=== PATIENT | female | born 1960 | race Caucasian/White ===

== ENCOUNTER 2017-08-20 05:57 | Emergency (ER) | payer BC, OTHER ==
[2017-08-20] MEDS ORDERED: Lorazepam 2 MG/ML VIAL ONE (06:23)
[2017-08-20] MEDS ORDERED: Ketorolac Tromethamine 30 MG/ML VIAL ONE (06:24)
== END 2017-08-20 07:39 | disposition home or self-care (01) ==
LOC: SCSER 05:57
DX: M54.5 Low back pain (principal); E03.9 Hypothyroidism, unspecified; X50.9XXA Other and unspecified overexertion or strenuous movements or postures, initial encounter
CPT/HCPCS: 96374; 96375; 96376; J1885; J2060; J2270

== ENCOUNTER 2017-08-25 15:58 | Outpatient (CLI) | payer BC ==
--- NOTE | 2017-08-25 19:09 | RAD ---
EXAM: THORACIC SPINE THREE VIEWS: 08/25/17 HISTORY: Pain. Patient was lying on the floor a few days ago and began having severe upper back pain. FINDINGS: Thoracic spine vertebral body height is maintained. No fracture. Mild loss of disc space height. No malalignment. IMPRESSION: Unremarkable three views thoracic spine. POS: [facility]
--- NOTE | 2017-08-25 19:20 | RAD ---
EXAM: THREE VIEWS LUMBAR SPINE 08/25/17 HISTORY: Back pain. Patient was lying on the floor a few days ago and began having severe upper and lower kareen k pain. FINDINGS: Three views lumbar spine: Five lumbar type vertebral bodies. Vertebral body height is maintained. No fracture. No spondylolist hesis or spondylolysis. Disc space heights are preserved. IMPRESSION: Unremarkable lumbar spine three views. POS: [facility]
== END 2017-08-25 15:59 | disposition home or self-care (01) ==
LOC: SCSRAD 15:58
PROVIDERS: ATTEND Family Medicine
DX: M54.9 Dorsalgia, unspecified (principal)
CPT/HCPCS: 72072; 72100

== ENCOUNTER 2017-12-16 10:19 | Outpatient (CLI) | payer BC | END 2017-12-16 10:20 | disposition home or self-care (01) | LOC: BICRAD 10:19 | PROVIDERS: ATTEND Internal Medicine Medical Oncology | DX: M89.8X9 Other specified disorders of bone, unspecified site (principal) | CPT/HCPCS: 77075 ==

== ENCOUNTER 2018-01-07 07:36 | Outpatient (CLI) | payer BC | END 2018-01-07 07:37 | disposition home or self-care (01) | LOC: BICBD 07:36 | PROVIDERS: ATTEND Internal Medicine Medical Oncology | DX: Z12.31 Encounter for screening mammogram for malignant neoplasm of breast (principal); Z13.820 Encounter for screening for osteoporosis; D68.69 Other thrombophilia; D47.2 Monoclonal gammopathy; S22.089A Unspecified fracture of T11-T12 vertebra, initial encounter for closed fracture; N63.20 Unspecified lump in the left breast, unspecified quadrant | CPT/HCPCS: 77080 ==

== ENCOUNTER 2018-01-28 13:52 | Outpatient (CLI) | payer BC | END 2018-01-28 13:53 | disposition home or self-care (01) | LOC: BICMAMMO 13:52 | PROVIDERS: ATTEND Internal Medicine Medical Oncology | DX: Z12.31 Encounter for screening mammogram for malignant neoplasm of breast (principal) | CPT/HCPCS: G0279 ==

== ENCOUNTER 2018-03-08 16:03 | Outpatient (CLI) | payer BC ==
--- NOTE | 2018-03-08 17:03 | ULT ---
VENOUS DOPPLER ULTRASOUND OF THE LEFT LOWER EXTREMITY 03/08/18 HISTORY: Left lower extremity pain and edema. TECHNIQUE: Altamirano scale ultrasound with color flow and spectral doppler imaging of the deep venous system of the l eft lower extremity is performed. FINDINGS: There is good flow, compression and augmentation noted in the left common femoral, femoral, deep femo ral, popliteal, posterior tibia and greater saphenous veins in the left lower extremity. IMPRESSION: No evidence of DVT in the left lower extremity. POS: [facility]
== END 2018-03-08 16:04 | disposition home or self-care (01) ==
LOC: ULT 16:03
PROVIDERS: ATTEND Internal Medicine Medical Oncology
DX: M79.605 Pain in left leg (principal); C90.00 Multiple myeloma not having achieved remission; D68.69 Other thrombophilia

== ENCOUNTER 2019-03-01 14:43 | Observation (INO) | payer BC ==
[2019-03-01] MEDS ORDERED: predniSONE 20 MG TAB ONE (15:13)
[2019-03-01 15:31] LABS: Hemoglobin 14.1 g/dL (12.0-16.0); Mean Corpuscular HGB CONC 32.8 g/dL (32.0-36.0); Mean Corpuscular Hemoglobin 30.4 pg (27.0-31.0); Mean Corpuscular Volume 92.8 fL (78.0-98.0); Mean Platelet Volume 6.6 fL (7.4-10.4); Platelet Count 450 thou/uL (130-400); RBC Distribution Width 12.9 % (11.5-14.5); Red Blood Cell (RBC) Count 4.63 mill/uL (4.20-5.40); White Blood Cell (WBC) Count 21.6 thou/uL (4.8-10.8)
[2019-03-01 15:50] LABS: ALT (SGPT) 27 U/L (8-55); AST (SGOT) 29 U/L (5-34); Alkaline Phosphatase 87 U/L (40-150); Anion Gap 15 mmol/L (10-20); BUN (Urea Nitrogen) 14 mg/dL (9.8-20.1); Bilirubin, Total 0.5 mg/dL (0.2-1.2); CK (CPK) 39 U/L (29-168); Calc. Creatinine Clearance 0 mL/min (70-130); Calcium 9.8 mg/dL (7.8-10.44); Carbon Dioxide 19 mmol/L (22-29); Chloride 109 mmol/L (98-107); Estimated GFR-MDRD 73; Globulin 3.4 g/dL (2.4-3.5); Glucose 160 mg/dL (70-105); Lipase 40 U/L (8-78); Potassium 4.2 mmol/L (3.5-5.1); Protein, Total 7.4 g/dL (6.0-8.3); Sodium 139 mmol/L (136-145)
[2019-03-01 15:54] LABS: Band 27 % (5-11); Lymphocytes 2 % (21-51); MDiff Complete? YES; Metamyelocyte 3 % (0-0); Monocytes 1 % (0-10); Neutrophil 67 % (42-75); Platelet Morphology Comment Appears Increased; RBC Morphology Normal
--- NOTE | 2019-03-01 15:56 | RAD ---
SINGLE VIEW CHEST: HISTORY: Dyspnea. COMPARISON: FINDINGS: A single view of the chest shows an enlarged but stable cardiomediastinal silhouette. There is no ev idence of consolidation, mass, or pleural effusion. Degenerative changes are seen In the spine. IMPRESSION: No evidence of acute cardiopulmonary disease. POS: [facility]
--- NOTE | 2019-03-01 16:39 | PDOC.FPRHP ---
Addendum entered and electronically signed by Esteban Card MD 03/01/19 17: 33: Leukocytosis likely 2/2 steroids given prior to presentation. Pt afebrile. Will repeat in the AM. Original Note: - History of Present Illness Chief Complaint: Reaction to New Chemo medication History of Present Illness: 59 yo female with diagnosis of multiple myloma (December 2016) presents for medication reaction. Earlier today started new chemo medication infusion at around 0930. Initially tolerated at lowest rate. Dose was doubled. Began noticing symptoms of chest tightness and fullness but felt she was tolerated well. After 1 hour rate was decreased to lowest rate again. Symptoms resolved. Therefore, rate was increased to triple initial rate. After 10 minutes patient became hypoxic and hypovolemic. Chest tightness, facial swelling, and hives. Infusion emergently stopped. Received 20 mg of dexemethasone, 0.5 mg of ativan, benadryl, and pepcid at the oncologist. Pt notes resolution of chest tightness and difficulty breathing as soon as infusion was stopped. Given 60 mg of prednisone and 1L NS here in the ER w/ subsequent resolution of face swelling and hives. Pt reports back to baseline. Dr. Chinchilla contacted from ER and requesting admission to attempt infusion again tomorrow at slower rate. ED Course: Received oral prednisone. 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 Father: Lung cancer. Thyroid disease -- hypo and hyper. Social: Denies tobacco, alcohol, and drug use. . 1 child. 4 children. 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 Code status: Full - Review of Systems General: denies: fever/chills Eyes: denies: vision changes ENT: denies: rhinorrhea Respiratory: reports: shortness of breath Cardiovascular: reports: chest pain (tightness) Gastrointestinal: denies: nausea, vomiting Skin: reports: rashes (hives) Musculoskeletal: reports: swelling (face) Neurological: denies: syncope, seizure Psychological: denies: anxiety - Vital signs BP: 137/62 HR: 106 RR: 18 Tmax: 98.2 Pox: 97% on 2L Wt: 126 kg - Physical Exam Constitutional: NAD, awake, alert and oriented, well developed HEENT: normocephalic and atraumatic, PERRLA, EOMI, conjunctiva clear Heart: RRR, other (2/5 TENA RLSB) Lungs: CTAB, no respiratory distress, good air movement, no rales/rhonchi, no wheezing Abdomen: soft, non-tender, bowel sounds present Musculoskeletal: normal structure, normal tone Neurological: no focal deficit, CN II-XII intact Skin: no rash/lesions Psychiatric: normal mood and affect, good judgment and insight FMR H&P: Results - Labs Result Diagrams: 03/02/19 03:50 03/02/19 03:50 Lab results: WBC 21.6 thou/uL (4.8-10.8) H 03/01/19 15:19 Hgb 14.1 g/dL (12.0-16.0) 03/01/19 15:19 Hct 43.0 % (36.0-47.0) 03/01/19 15:19 MCV 92.8 fL (78.0-98.0) 03/01/19 15:19 Plt Count 450 thou/uL (130-400) H 03/01/19 15:19 Band Neuts % (Manual) 27 % (5-11) H 03/01/19 15:19 Sodium 139 mmol/L (136-145) 03/01/19 15:19 Potassium 4.2 mmol/L (3.5-5.1) 03/01/19 15:19 Chloride 109 mmol/L (98-107) H 03/01/19 15:19 Carbon Dioxide 19 mmol/L (22-29) L 03/01/19 15:19 BUN 14 mg/dL (9.8-20.1) 03/01/19 15:19 Creatinine 0.81 mg/dL (0.6-1.1) 03/01/19 15:19 Glucose 160 mg/dL (70-105) H 03/01/19 15:19 Calcium 9.8 mg/dL (7.8-10.44) 03/01/19 15:19 Total Bilirubin 0.5 mg/dL (0.2-1.2) 03/01/19 15:19 AST 29 U/L (5-34) 03/01/19 15:19 ALT 27 U/L (8-55) 03/01/19 15:19 Alkaline Phosphatase 87 U/L (40-150) 03/01/19 15:19 Creatine Kinase 39 U/L (29-168) 03/01/19 15:19 B-Natriuretic Peptide 23.1 pg/mL (0-100) 03/01/19 15:19 Serum Total Protein 7.4 g/dL (6.0-8.3) 03/01/19 15:19 Albumin 4.0 g/dL (3.5-5.0) 03/01/19 15:19 Lipase 40 U/L (8-78) 03/01/19 15:19 - EKG Interpretation EKG: Sinus tachycardia at 106 bpm - Radiology Interpretation Chest x-ray Status: report reviewed by me Additional comment: NAD FMR H&P: A/P - Problem List (1) Medication reaction Current Visit: Yes Status: Acute Code(s): T50.905A - ADVERSE EFFECT OF UNSP DRUG/MEDS/BIOL SUBST, INIT Assessment and Plan: S/p steroids x 2 and antihistamines Did not require epinephrine Pt reports back to baseline, VSS Will admit to Onc/Obs per oncology reccomendations and monitor overnight w/ plans to re-attempt infusion of new chemo medication tomorrow at a slower rate as she was able to tolerate it at 25 mL/hr Will have PRN antihistamines available for patient (2) Multiple myeloma Current Visit: Yes Status: Acute Code(s): C90.00 - MULTIPLE MYELOMA NOT HAVING ACHIEVED REMISSION Assessment and Plan: See above, chemo tomorrow per Oncology (3) HTN (hypertension) Current Visit: Yes Status: Acute Code(s): I10 - ESSENTIAL (PRIMARY) HYPERTENSION Assessment and Plan: Home meds w/ losartan (4) History of pulmonary embolus (PE) Current Visit: Yes Status: Acute Code(s): Z86.711 - PERSONAL HISTORY OF PULMONARY EMBOLISM Assessment and Plan: Cont. w/ eliquis for VTE ppx (5) Hypothyroidism Current Visit: Yes Status: Acute Code(s): E03.9 - HYPOTHYROIDISM, UNSPECIFIED Assessment and Plan: Cont. w/ home synthroid - Plan CODE STATUS: FULL CODE DIET: Regular PPX: Eliquis Assessment and Plan discussed w/ Dr. Breanne Momin who is in agreement. FMR H&P: Upper Level - Plan Date/Time: 03/01/19 1639 I, [], have evaluated this patient and agree with findings/plan as outlined by leadership program internship resident. Pertinent changes/additions are listed here. Addendum - Attending - Attending Attestation Date/Time: 03/01/191812 I personally evaluated the patient and discussed the management with Dr. Card I agree with the History, Examination, Assessment and Plan documented above with any addition or exceptions noted below. 59 yo female with history of multiple myloma presents for evaluation of medication reaction. Patient receiving 1st time infusion of new chemo medication earlier today starting at 0930. Initially tolerated test dose well. Infusion rate was increased. Patient reports feeling some chest tightness but did not progress. Rate was again increased. After 10 mins patient broke out in hives and edema along with SOB. Attempted to stand and became dizzy. Patient was given steroids, antihistamines and sent to ER. Did not require epi. Currently she is asymptomatic. In the ER she has received oral predinsone. NAD. RRR. I/ systolic LSB CTAB BS +. NT/ND. FROM x4. No E/C/C. 1. Medication reaction vs Allergic: Medication provided to patient has risk for infusion rate reactions. However, concerning this was allergic in nature due to likely hypotension and SOB. Will call DRs office to review vitals at time of event and review event findings with staff. Hem/Onc to follow in hospital. Will possibly give test dose tomorrow if remains well will consider slow infusion rate -- per patient report. Hem to manage. Will obs overnight. John
[2019-03-01] MEDS ORDERED: Ondansetron ODT 4 MG TAB SL PRN (18:27)
[2019-03-01] MEDS ORDERED: Sodium Chloride 0.9% 1,000 ML IV SCH (18:27)
[2019-03-01] MEDS ORDERED: Ondansetron PF 4 MG/2 ML Vial IVP PRN (18:27)
[2019-03-01] MEDS ORDERED: diphenhydrAMINE 50 MG/ML VIAL IVP PRN (19:30)
[2019-03-01] MEDS ORDERED: Acetaminophen 325 MG TAB PO PRN (19:30)
[2019-03-01] MEDS ORDERED: Ondansetron ODT 4 MG TAB PO PRN (19:30)
[2019-03-01] MEDS ORDERED: EPINEPHrine 1 mg/ml MDV (1ml Charge) IM PRN (19:30)
[2019-03-01] MEDS ORDERED: Famotidine 20 MG TAB PO PRN (19:30)
[2019-03-01] MEDS: Apixaban 5 MG TAB PO SCH (20:29)
[2019-03-01] MEDS: Acyclovir 400 mg Tablet PO SCH (20:29)
[2019-03-01 23:29] VITALS: BMI 37.7
[2019-03-02 04:02] LABS: #Lymphocytes 0.9 thou/uL (1.20-3.40); #Monocytes 0.2 thou/uL (0.11-0.59); #Neutrophils 15.9 thou/uL (1.40-6.50); %Basophils 0.1 % (0.0-1.0); %Lymphocytes 5.4 % (21.0-51.0); %Monocytes 1.1 % (0.0-10.0); %Neutrophils 93.3 % (42.0-75.0); Hemoglobin 12.5 g/dL (12.0-16.0); Mean Corpuscular HGB CONC 33.4 g/dL (32.0-36.0); Mean Corpuscular Volume 92.9 fL (78.0-98.0); Mean Platelet Volume 6.6 fL (7.4-10.4); Platelet Count 435 thou/uL (130-400); RBC Distribution Width 13.2 % (11.5-14.5); Red Blood Cell (RBC) Count 4.03 mill/uL (4.20-5.40)
[2019-03-02 04:18] LABS: Chloride 110 mmol/L (98-107); Sodium 139 mmol/L (136-145)
[2019-03-02 04:19] LABS: Calcium 9.4 mg/dL (7.8-10.44); Glucose 208 mg/dL (70-105)
[2019-03-02 04:21] LABS: Anion Gap 15 mmol/L (10-20); Carbon Dioxide 18 mmol/L (22-29)
[2019-03-02 04:23] LABS: BUN (Urea Nitrogen) 13 mg/dL (9.8-20.1); Calc. Creatinine Clearance 174 mL/min (70-130); Estimated GFR-MDRD 85
[2019-03-02] MEDS: Levothyroxine 175 MCG TAB PO SCH (05:51)
--- NOTE | 2019-03-02 06:45 | PDOC.FM ---
- Subjective Subjective: Doing much better this morning. Reports some loose stools, 4x nonbloody. Denies chest tightness, shortness of breath. - Objective MAR Reviewed: Yes Vital Signs & Weight: Vital Signs (12 hours) Temp Pulse Resp BP BP Pulse Ox 03/02/19 04:00 97.6 F 79 18 119/68 94 L 03/01/19 19:34 98.5 F 100 18 137/75 96 Weight Weight 126.099 kg I&O: 02/28/19 03/01/19 03/02/19 06:59 06:59 06:59 Intake Total 480 Balance 480 Result Diagrams: 03/02/19 03:50 03/02/19 03:50 Phys Exam - Physical Examination Constitutional: NAD HEENT: moist MMs Neck: supple Respiratory: no wheezing, clear to auscultation bilateral Cardiovascular: RRR Gastrointestinal: soft, non-tender, positive bowel sounds Musculoskeletal: no edema Neurological: moves all 4 limbs Psychiatric: normal affect, A&O x 3 Skin: no rash Dx/Plan (1) Medication reaction Code(s): T50.905A - ADVERSE EFFECT OF UNSP DRUG/MEDS/BIOL SUBST, INIT Status: Acute (2) HTN (hypertension) Code(s): I10 - ESSENTIAL (PRIMARY) HYPERTENSION Status: Acute (3) History of pulmonary embolus (PE) Code(s): Z86.711 - PERSONAL HISTORY OF PULMONARY EMBOLISM Status: Acute (4) Hypothyroidism Code(s): E03.9 - HYPOTHYROIDISM, UNSPECIFIED Status: Acute (5) Multiple myeloma Code(s): C90.00 - MULTIPLE MYELOMA NOT HAVING ACHIEVED REMISSION Status: Acute - Plan Plan: Ms Quesada is 59yo female with pmh of MM presenting with adverse medication reaction during chemo infusion Medication reaction during chemo - S/p steroids x2, antihistamines, 1L NS. Did not require epinephrine - VSS - Dr Chinchilla consulted, apprec recs - Plan to re-attempt infusion of new chemo med today at a slower rate as she was able to tolerate it at 25 mL/hr - Benadryl, Pepcid, Epi PRN Multiple Myeloma - Manage as above - Zofran PRN HTN - Continue home losartan Hx of PE - Continue home Eliquis Hypothyroidism - Continue home levothyroxine Code Status: FULL DVT ppx: Eliquis PCP: Dr Cornejo
[2019-03-02] MEDS: Losartan 25 MG TAB PO SCH (09:21)
[2019-03-02] MEDS: Acyclovir 400 mg Tablet PO SCH ×2 (09:21→20:37)
[2019-03-02] MEDS: Apixaban 5 MG TAB PO SCH ×2 (09:21→20:37)
[2019-03-02] MEDS ORDERED: Dexamethasone 20 MG in Sodium Chloride 0.9% 50 ML IVPB SCH (10:45)
[2019-03-02] MEDS ORDERED: diphenhydrAMINE 50 MG in Sodium Chloride 0.9% 50 ML IVPB SCH (11:15)
[2019-03-02] MEDS ORDERED: SODIUM CHLORIDE 0.9% IV SCH (11:15)
[2019-03-02] MEDS ORDERED: DARATUMUMAB IV SCH (11:15)
[2019-03-02] MEDS ORDERED: Famotidine/PF 20 mg/2ml Vial SLOW IVP SCH (11:15)
[2019-03-02] MEDS ORDERED: Acetaminophen 500 MG TAB PO SCH (12:15)
--- NOTE | 2019-03-02 13:46 | PRG ---
DATE OF SERVICE: 03/02/2019 Ms. Quesada is a very pleasant 59-year-old white female, who is undergoing chemotherapy for multiple myeloma. Yesterday, while being administered chemo, she developed some chest tightness and hives. It was elected to re-continue her chemo in the hospital setting where she can be watched for side effects and reactions. Today, she is pleasant, alert, awaiting her first intrahospital treatment. We will continue to follow with the Oncology Service and will be ready to administer care should she react to the medication again. Job ID: [id number]
--- NOTE | 2019-03-03 06:24 | PDOC.FM ---
- Subjective Subjective: Feeling well this morning. Tolerated chemo yesterday. No overnight events or complaints. - Objective MAR Reviewed: Yes Vital Signs & Weight: Vital Signs (12 hours) Temp Pulse Resp BP Pulse Ox 03/03/19 04:00 97.5 F L 61 18 135/71 95 03/02/19 23:59 97.7 F 66 18 128/63 93 L 03/02/19 19:41 98.4 F 72 18 147/73 H 95 Weight Weight 126.099 kg I&O: 03/01/19 03/02/19 03/03/19 06:59 06:59 06:59 Intake Total 480 1600 Balance 480 1600 Result Diagrams: 03/02/19 03:50 03/02/19 03:50 Phys Exam - Physical Examination Constitutional: NAD HEENT: moist MMs Neck: supple Normal respiratory effort Gastrointestinal: soft, non-tender Musculoskeletal: no edema Neurological: moves all 4 limbs Psychiatric: normal affect, A&O x 3 Skin: normal turgor Dx/Plan (1) Medication reaction Code(s): T50.905A - ADVERSE EFFECT OF UNSP DRUG/MEDS/BIOL SUBST, INIT Status: Acute (2) HTN (hypertension) Code(s): I10 - ESSENTIAL (PRIMARY) HYPERTENSION Status: Acute (3) History of pulmonary embolus (PE) Code(s): Z86.711 - PERSONAL HISTORY OF PULMONARY EMBOLISM Status: Acute (4) Hypothyroidism Code(s): E03.9 - HYPOTHYROIDISM, UNSPECIFIED Status: Acute (5) Multiple myeloma Code(s): C90.00 - MULTIPLE MYELOMA NOT HAVING ACHIEVED REMISSION Status: Acute - Plan Plan: Ms Quesada is 59yo female with pmh of MM presenting with adverse medication reaction during chemo infusion Medication reaction during chemo - S/p steroids x2, antihistamines, 1L NS. Did not require epinephrine - VSS - Dr Chinchilla consulted, apprec recs - Chemo yesterday no reaction with slow infusion - Benadryl, Pepcid, Epi PRN Multiple Myeloma - Manage as above - Zofran PRN HTN - Continue home losartan Hx of PE - Continue home Eliquis Hypothyroidism - Continue home levothyroxine Code Status: FULL DVT ppx: Eliquis PCP: Dr Cornejo
[2019-03-03] MEDS: Levothyroxine 175 MCG TAB PO SCH (06:47)
[2019-03-03 09:07] VITALS: BP 138/76; TEMP 98.3
[2019-03-03] MEDS: Apixaban 5 MG TAB PO SCH (09:12)
[2019-03-03] MEDS: Losartan 25 MG TAB PO SCH (09:12)
[2019-03-03] MEDS: Acyclovir 400 mg Tablet PO SCH (09:12)
--- NOTE | 2019-03-03 12:52 | PRG ---
DATE OF SERVICE: 03/03/2019 Ms. Quesada completed her chemotherapy without incident. She looks and feels fine and is ready to go home. In taking history from her, it is evident that her reaction to this medication seemed be related to the rate at which she was given. I doubt that this represent anaphylaxis as opposed to a side effect of the medication. In the event, she is safe for discharge and I believe this medication is given at a lower rate. She will be better tolerated by her. Job ID: [id number]
--- NOTE | 2019-03-04 04:16 | DIS ---
DATE OF ADMISSION: 03/01/2019 DATE OF DISCHARGE: 03/03/2019 RESIDENT: Nicci Chicas MD, PGY-1. ADMITTING ATTENDING: Breanne Momin MD DISCHARGE ATTENDING: Woo Ramires MD CONSULTS: Oncology. PROCEDURES: Chest x-ray, no evidence of acute cardiopulmonary disease. PRIMARY DIAGNOSIS: Medication reaction during chemo. SECONDARY DIAGNOSES: 1. Multiple myeloma. 2. Hypertension. 3. History of pulmonary embolism. 4. Hypothyroidism. HISTORY OF PRESENT ILLNESS/HOSPITAL COURSE: Ms. Quesada is a 59-year-old female with past medical history of multiple myeloma, who presents after medication reaction during chemo. Today, she was initially tolerating over a rate of 25 mL/hour. When increased to 75 mL/hour, she started having symptoms of chest tightness and rash. She was given 20 mg of dexamethasone, 0.5 Ativan, Benadryl and Pepcid at Oncology office. When symptoms worsened, she was sent to the ER and then received 60 mg of prednisone, 1 L normal saline with resolution of swelling and hives. Dr. Chinchilla was consulted from the ER and requested admission to attempt effusion under closed supervision at a slower rate. The patient tolerated the lower rate well and had normal vital signs. Initially required 2 L nasal cannula at 97%, but was taken off and maintained saturation above 95%. The patient's chronic medical problems of multiple myeloma are managed with Dr. Chinchilla, hypertension was controlled with home losartan, and hypothyroidism controlled with home levothyroxine. The patient does have a history of PE, was continued on her home Eliquis. DISPOSITION: Stable. DISCHARGE INSTRUCTIONS: 1. Location: Home. 2. Diet: Regular. 3. Activity: No restrictions. 4. Followup: Follow up with PCP, Dr. Cornejo, within [address] Chinchilla in clinic as directed. Job ID: [id number]
== END 2019-03-03 11:15 | disposition home or self-care (01) ==
LOC: ERS 14:43 → ONC 16:31
PROVIDERS: ADMIT Student in an Organized Health Care Education/Training Program; ATTEND Student in an Organized Health Care Education/Training Program
DX: R07.89 Other chest pain (principal); L50.9 Urticaria, unspecified; R06.02 Shortness of breath; T45.1X5A Adverse effect of antineoplastic and immunosuppressive drugs, initial encounter; C90.00 Multiple myeloma not having achieved remission; E89.0 Postprocedural hypothyroidism; I10 Essential (primary) hypertension; Z86.711 Personal history of pulmonary embolism; Z91.040 Latex allergy status; Z79.01 Long term (current) use of anticoagulants; Z79.899 Other long term (current) drug therapy
CPT/HCPCS: 36415; 71045; 80048; 80053; 82248; 82550; 83615; 83690; 83880; 83883; 84100; 84165; 84484; 84550; 85025; 86850; 86880; 86900; 86901; 86905; 93005; 96360; 96361; 96367; 96375; 96413; 96415; G0378; J1100; J1200; J7050; J7512; J9145; S0028

== ENCOUNTER 2019-03-07 22:29 | Emergency (ER) | payer BC ==
[2019-03-08 02:22] LABS: #Basophils 0.1 thou/uL (0.0-0.2); #Eosinphils 0.2 thou/uL (0.0-0.7); #Lymphocytes 1.9 thou/uL (1.20-3.40); #Monocytes 0.8 thou/uL (0.11-0.59); #Neutrophils 5.7 thou/uL (1.40-6.50); %Basophils 1.4 % (0.0-1.0); %Eosinophils 2.8 % (0.0-10.0); %Lymphocytes 21.8 % (21.0-51.0); %Monocytes 9.3 % (0.0-10.0); %Neutrophils 64.8 % (42.0-75.0); Hemoglobin 15.8 g/dL (12.0-16.0); Mean Corpuscular HGB CONC 33.5 g/dL (32.0-36.0); Mean Corpuscular Hemoglobin 31.2 pg (27.0-31.0); Mean Platelet Volume 6.9 fL (7.4-10.4); Platelet Count 462 thou/uL (130-400); RBC Distribution Width 13.6 % (11.5-14.5); Red Blood Cell (RBC) Count 5.06 mill/uL (4.20-5.40); White Blood Cell (WBC) Count 8.8 thou/uL (4.8-10.8)
[2019-03-08 02:42] LABS: ALT (SGPT) 31 U/L (8-55); AST (SGOT) 16 U/L (5-34); Albumin 4.4 g/dL (3.5-5.0); Alkaline Phosphatase 76 U/L (40-150); Anion Gap 15 mmol/L (10-20); BUN (Urea Nitrogen) 13 mg/dL (9.8-20.1); Bilirubin, Total 0.7 mg/dL (0.2-1.2); Calc. Creatinine Clearance 0 mL/min (70-130); Calcium 10.5 mg/dL (7.8-10.44); Carbon Dioxide 23 mmol/L (22-29); Chloride 105 mmol/L (98-107); Estimated GFR-MDRD 77; Globulin 3.3 g/dL (2.4-3.5); Glucose 122 mg/dL (70-105); Potassium 4.3 mmol/L (3.5-5.1); Protein, Total 7.7 g/dL (6.0-8.3); Sodium 139 mmol/L (136-145)
== END 2019-03-08 03:57 | disposition home or self-care (01) ==
LOC: ERS 22:29
DX: R00.1 Bradycardia, unspecified (principal); E03.9 Hypothyroidism, unspecified; E78.5 Hyperlipidemia, unspecified; I10 Essential (primary) hypertension; Z79.899 Other long term (current) drug therapy
CPT/HCPCS: 80053; 84443; 84484; 85025; 93005

== ENCOUNTER 2019-03-13 07:56 | Day surgery (SDC) | payer BC ==
[~2019-03-13 07:56] MED LIST: Acetaminophen 500 MG TAB PO SCH; Dexamethasone 40 MG in Sodium Chloride 0.9% 50 ML IVPB SCH; diphenhydrAMINE 50 MG in Sodium Chloride 0.9% 50 ML IVPB SCH
[2019-03-13] MEDS ORDERED: Acetaminophen 500 MG TAB PO SCH (08:30)
[2019-03-13] MEDS ORDERED: Famotidine/PF 20 mg/2ml Vial SLOW IVP SCH (08:30)
[2019-03-13] MEDS ORDERED: diphenhydrAMINE 50 MG in Sodium Chloride 0.9% 50 ML IVPB SCH (08:30)
[2019-03-13] MEDS ORDERED: Dexamethasone 40 MG in Sodium Chloride 0.9% 50 ML IVPB SCH (08:30)
[2019-03-13] MEDS ORDERED: Sodium Chloride 0.9% 40 ML ONE (08:32)
[2019-03-13] MEDS ORDERED: SODIUM CHLORIDE 0.9% IV SCH (08:45)
[2019-03-13] MEDS ORDERED: DARATUMUMAB IV SCH (08:45)
[2019-03-13 15:48] VITALS: BP 122/75; TEMP 97.9
== END 2019-03-13 15:54 | disposition home or self-care (01) ==
LOC: ONC/OP 07:56
PROVIDERS: ATTEND Internal Medicine Medical Oncology
DX: Z51.11 Encounter for antineoplastic chemotherapy (principal); C90.00 Multiple myeloma not having achieved remission; C79.51 Secondary malignant neoplasm of bone; D68.69 Other thrombophilia
CPT/HCPCS: 96367; 96375; 96413; 96415; J1100; J1200; J1642; J7050; J9145; S0028

== ENCOUNTER 2019-05-15 19:01 | Inpatient (IN) | payer BC ==
--- NOTE | 2019-05-16 00:17 | PDOC.FPRHP ---
- History of Present Illness Chief Complaint: SOB History of Present Illness: 59 yo F with a history of multiple myeloma and PE presents with shortness of breath, nasal congestion, and cough. Her was treated for a URI 2 weeks ago. Last Wednesday, she said she developed severe fatigue. She said over the last week she has progressively gotten short of breath. Yesterday, she says her temp was running 99-100, she had some nasal congestion, and developed a cough. She went to an outpt clinic this afternoon. They gave her 2 breathing treatments and sent her home with a prescription for proair and azithro. She used the inhaler twice at home without alleviation of her SOB. She called her doctor and he determined it was best for her to come her due to her treatment of multiple myeloma with chemo. ED Course: In the ED, she was tachycardic and EKG showed A fib with RVR so she was started on amiodarone. They did a CT to rule out PE and it showed LLL consolidation. She had a CXR that was normal. - Allergies/Adverse Reactions Allergies Allergy/AdvReac Type Severity Reaction Status Date / Time latex Allergy Verified 03/01/19 23:10 - Home Medications Medication Instructions Recorded Confirmed Type Apixaban [Eliquis] 5 mg PO BID 03/01/19 05/16/19 History Levothyroxine [Synthroid] 175 mcg PO DAILY 03/01/19 05/16/19 History Losartan Potassium 100 mg PO DAILY 03/01/19 05/16/19 History Acyclovir [Zovirax] 400 mg PO BID tab 03/03/19 05/16/19 Rx Ondansetron [Zofran ODT] 4 mg PO Q6H PRN #10 tab 03/03/19 05/16/19 Rx diphenhydrAMINE [Benadryl] 50 mg IVP WILLCALL PRN vial 03/03/19 05/16/19 Rx - History PMHx: Multiple Myeloma and PE PSHx: Bone Marrow Transplant 2017, Thyroidectomy 2009 (nodules), Pancreatic tumor removal 2007, Splenectomy 2007, Cholecystectomy 2007, Left adrenalectomy 2007 FHx: Father-lung cancer, Mother- Colon cancer Social: [place] . 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 - Review of Systems General: reports: fever/chills (temp 99-100), weight/appetite/sleep changes ( Decreased appetite over the past few days), fatigue. denies: night sweats Eyes: denies: vision changes ENT: reports: nasal congestion, rhinorrhea Respiratory: reports: cough, congestion, shortness of breath Cardiovascular: reports: palpitation. denies: chest pain, edema Gastrointestinal: reports: diarrhea. denies: nausea, vomiting, constipation, abdominal pain Genitourinary: denies: dysuria Skin: denies: rashes, lesions Musculoskeletal: reports: swelling. denies: pain Neurological: denies: numbness, syncope Psychological: denies: anxiety, depression - Vital signs BP: [126/85] HR: [137] RR: [34] Tmax: [98.1] Pox: [95]% on [4L] Wt: [128 kg] - Physical Exam Constitutional: NAD HEENT: normocephalic and atraumatic, PERRLA, EOMI, conjunctiva clear, TM's clear and intact (except L TM looks like it has a slight bulge), grossly normal hearing, oropharynx clear, good dention Neck: supple, no LAD Chest: no-tender to palpation, no lesions Heart: normal S1/S2, no murmurs/rubs/gallops, no edema, other (Tachycardic) Lungs: other (Wheezing throughout with decreased breath sounds in LLL) Abdomen: soft, non-tender, bowel sounds present Musculoskeletal: normal structure, normal tone Neurological: no focal deficit Skin: no rash/lesions Heme/Lymphatic: no unusual bruising or bleeding Psychiatric: normal mood and affect FMR H&P: Results - Labs Lab results: Laboratory Tests 05/15/19 23:44 Lactic Acid 2.7 H - EKG Interpretation EKG: A fib with RVR FMR H&P: A/P - Problem List (1) PNA (pneumonia) Current Visit: Yes Status: Acute Priority: High Code(s): J18.9 - PNEUMONIA , UNSPECIFIED ORGANISM Qualifiers: Pneumonia type: due to unspecified organism Laterality: left Lung location: lower lobe of lung Qualified Code(s): J18.1 - Lobar pneumonia, unspecified organism (2) Atrial fibrillation with RVR Current Visit: Yes Onset Date: ~05/15/19 Status: Acute Priority: High Code(s): I48.91 - UNSPECIFIED ATRIAL FIBRILLATION (3) Multiple myeloma Current Visit: No Status: Chronic Priority: Medium Code(s): C90.00 - MULTIPLE MYELOMA NOT HAVING ACHIEVED REMISSION Qualifiers: Multiple myeloma remission status: not in remission Qualified Code(s): C90.00 - Multiple myeloma not having achieved remission (4) History of pulmonary embolus (PE) Current Visit: No Status: Chronic Priority: Low Code(s): Z86.711 - PERSONAL HISTORY OF PULMONARY EMBOLISM (5) Hypothyroidism Current Visit: No Status: Chronic Priority: Low Code(s): E03.9 - HYPOTHYROIDISM, UNSPECIFIED Qualifiers: Hypothyroidism type: postoperative Qualified Code(s): E89.0 - Postprocedural hypothyroidism - Plan -PNA: Duonebs, Vanc, Zosyn. Monitor O2 sats and adjust O2 accordingly. Received Azithro and Rocephin in ED. -A fib with RVR: Received amiodarone in ED and converted will monitor her with telemetry. -Multiple Myeloma: Continue home meds and monitor. -Hypothyroid: Continue home meds -PE: Continue Eliquis. FMR H&P: Upper Level - Pertinent history 59 yo F here with complaint of SOB. She has hx of multiple myeloma, 2 previous PEs, and HTN. She was seen earlier today in urgent care and given azithromycin and albuterol. Due to worsening symptoms she presented here. She states that she has had progressively worsening SOB for the past 5 days with an acute worsening today. She complains of associated cough. Denies fever. Current symptoms are different than her previous PE's. In the ED a CTA showed no PE, but was concerning for RLL pna. She was given IV abx and breathing treatments. An EKG in the ER showed a fib with rate greater than 150. Patient has no prior hx of arrhythmia. She was started on an amio drip and converted back into NSR with Rate in the 80s. See international sales representative portion for full ROS, PE, labs and vitals ROS General denies fever or chillls HEENT complains of rhinorrhea CV denies CP or palpitations Resp complains of SOB and cough GI denies n/v Extremities denies edema Neuro denies weakness, numbness - Pertinent findings PE General patient is in moderate respiratory distress and speaking in 2-3 word sentences. HEENT NCAT CV RRR, no murmur Resp tachypnea, coarse breath sounds worst in LLL And non tender, no distension Extremities no edema Neuro no focal deficits - Plan Date/Time: 05/16/19 001 ISergio, DO, have evaluated this patient and agree with findings/plan as outlined by international sales representative resident. Pertinent changes/additions are listed here. 1. Sepsis secondary to CAP - Will expand abx coverage dt frequent healthcare exposure and chemo. Start Vanc and Zosyn - Blood cx pending - Has received 30 mg/kg bolus, start IVF at maintenance rate. - trend lactic acid - currently hemodynamically stable, continue to monitor - scheduled duoneb - prn O2, currently requiring 4L NS - pt does have hx of PE, however CTA is negative at this time 2. afib with RVR, resolved - continue amio drip, currently in NSR - admit to tele - most likely related to sepsis, if arrhythmia recurs plan to consult cardiology - continue elequis. 3. Multiple myeloma - currently undergoing tx, broad scope abx as above 4. Hypothyroid - home synthroid
[2019-05-16 00:23] LABS: Lactic Acid 2.7 mmol/L (0.5-2.2)
[2019-05-16] MEDS ORDERED: diphenhydrAMINE 50 MG/ML VIAL IVP PRN (01:24)
[2019-05-16] MEDS ORDERED: Ondansetron ODT 4 MG TAB PO PRN (01:24)
[2019-05-16] MEDS ORDERED: VANCOMYCIN HCL IVPB SCH (03:10)
[2019-05-16] MEDS ORDERED: SODIUM CHLORIDE 0.9% IVPB SCH (03:10)
[2019-05-16] MEDS ORDERED: Piperacillin/Tazobactam 4.5 GM VIAL ONE (03:22)
[2019-05-16] MEDS ORDERED: Piperacillin/Tazobactam 4.5 GM in Sodium Chloride 0.9% 100 ML IVPB SCH (03:30)
[2019-05-16 03:57] LABS: Hemoglobin 14.3 g/dL (12.0-16.0); Mean Corpuscular HGB CONC 32.7 g/dL (32.0-36.0); Mean Corpuscular Hemoglobin 32.1 pg (27.0-31.0); Mean Corpuscular Volume 98.2 fL (78.0-98.0); Mean Platelet Volume 6.9 fL (7.4-10.4); Platelet Count 375 thou/uL (130-400); RBC Distribution Width 15.3 % (11.5-14.5); Red Blood Cell (RBC) Count 4.44 mill/uL (4.20-5.40); White Blood Cell (WBC) Count 6.8 thou/uL (4.8-10.8)
[2019-05-16 04:08] LABS: Anion Gap 13 mmol/L (10-20); BUN (Urea Nitrogen) 6 mg/dL (9.8-20.1); Calc. Creatinine Clearance 0 mL/min (70-130); Calcium 8.8 mg/dL (7.8-10.44); Carbon Dioxide 24 mmol/L (22-29); Chloride 103 mmol/L (98-107); Estimated GFR-MDRD 89; Glucose 127 mg/dL (70-105); Potassium 3.9 mmol/L (3.5-5.1); Sodium 136 mmol/L (136-145)
[2019-05-16 04:40] LABS: Band 22 % (5-11); Lymphocytes 17 % (21-51); MDiff Complete? YES; Monocytes 25 % (0-10); Neutrophil 35 % (42-75)
[2019-05-16] MEDS: Levothyroxine 175 MCG TAB PO SCH (06:09)
[2019-05-16] MEDS: Sodium Chloride 0.9% 1,000 ML IV SCH ×2 (06:09→17:56)
[2019-05-16] MEDS ORDERED: Amiodarone 450 MG in Dextrose 5% in Water 250 ML IVPB SCH (06:45)
--- NOTE | 2019-05-16 07:32 | PDOC.FM ---
- Subjective Subjective: pt resting comfortably in bed, she reports fatigue and dyspnea when not on O2. denies fever/chills - Objective Vital Signs & Weight: Vital Signs (12 hours) Temp Pulse Resp BP Pulse Ox 05/16/19 06:00 98.8 F 80 16 121/64 91 L 05/16/19 01:37 91 28 H 97 Result Diagrams: 05/16/19 03:40 05/16/19 03:40 Phys Exam - Physical Examination Constitutional: NAD HEENT: moist MMs Neck: full ROM Respiratory: wheezing present Cardiovascular: RRR, no significant murmur Gastrointestinal: no distention Musculoskeletal: pulses present Neurological: moves all 4 limbs Lymphatic: no nodes Psychiatric: normal affect Skin: no rash Dx/Plan (1) Atrial fibrillation with RVR Code(s): I48.91 - UNSPECIFIED ATRIAL FIBRILLATION Status: Acute (2) PNA (pneumonia) Code(s): J18.9 - PNEUMONIA, UNSPECIFIED ORGANISM Status: Acute Qualifiers: Pneumonia type: due to unspecified organism Laterality: left Lung location: lower lobe of lung Qualified Code(s): J18.1 - Lobar pneumonia, unspecified organism (3) History of pulmonary embolus (PE) Code(s): Z86.711 - PERSONAL HISTORY OF PULMONARY EMBOLISM Status: Chronic (4) Hypothyroidism Code(s): E03.9 - HYPOTHYROIDISM, UNSPECIFIED Status: Chronic Qualifiers: Hypothyroidism type: postoperative Qualified Code(s): E89.0 - Postprocedural hypothyroidism (5) Multiple myeloma Code(s): C90.00 - MULTIPLE MYELOMA NOT HAVING ACHIEVED REMISSION Status: Chronic Qualifiers: Multiple myeloma remission status: not in remission Qualified Code(s): C90.00 - Multiple myeloma not having achieved remission - Plan Plan: Sepsis secondary to CAP - increased O2 requirement, tachycardia, CTA revealing pna in the setting of multiple myeloma undergoing chemo - continue Vanc and Zosyn for immune suppressed state and health care visits - Blood cx NGTD, LA downtrending, procal pending - currently hemodynamically stable, continue to monitor - scheduled duoneb, PRN O2 to maintain sats>92%, add prednisone afib with RVR, resolved - wean amio drip as tolerated, continue to monitor - most likely related to sepsis, if arrhythmia recurs plan to consult cardiology - continue eliquis. Multiple myeloma - currently undergoing tx, broad scope abx as above Hypothyroid - home synthroid code: full ppx: eliquis abx: vanc/zosyn dispo: continue to monitor on tele, DC amio at 24 hrs Addendum - Attending - Attending Attestation Date/Time: 05/16/19 1027 I personally evaluated the patient and discussed the management with Dr. Arteaga. I agree with the History, Examination, Assessment and Plan documented above with any addition or exceptions noted below. I suspect a bronchitis component to the clinical picture. Will continue nebs and add steroids.
[2019-05-16 08:02] LABS: Lactic Acid 1.4 mmol/L (0.5-2.2)
[2019-05-16] MEDS ORDERED: Levothyroxine 175 MCG TAB PO SCH (09:00)
[2019-05-16] MEDS ORDERED: predniSONE 20 MG TAB PO SCH ×2 (09:00→09:15)
[2019-05-16] MEDS ORDERED: Acyclovir 400 mg Tablet PO SCH (09:00)
[2019-05-16] MEDS ORDERED: POMALIDOMIDE 2 MG PO SCH (09:00)
[2019-05-16] MEDS ORDERED: Losartan 25 MG TAB PO SCH (09:00)
[2019-05-16] MEDS ORDERED: Pomalidomide [Pomalyst] 2 MG PO SCH (09:15)
[2019-05-16] MEDS: Apixaban 5 MG TAB PO SCH ×2 (09:18→21:14)
[2019-05-16] MEDS: Piperacillin/Tazobactam 4.5 GM in Sodium Chloride 0.9% 100 ML IVPB SCH ×3 (09:19→21:15)
[2019-05-16] MEDS ORDERED: Albuterol Sulfate 2.5 mg/3 ml Neb NEB PRN (10:10)
[2019-05-16] MEDS: Acetaminophen 325 MG TAB PO PRN (11:45)
[2019-05-16] MEDS: Acyclovir 400 mg Tablet PO SCH ×3 (11:46→21:27)
[2019-05-17] MEDS: Sodium Chloride 0.9% 1,000 ML IV SCH
[2019-05-17] MEDS ORDERED: Amiodarone 200 MG TAB PO SCH ×3 (03:30→09:00)
[2019-05-17] MEDS: Piperacillin/Tazobactam 4.5 GM in Sodium Chloride 0.9% 100 ML IVPB SCH ×2 (03:41→08:27)
[2019-05-17] MEDS: Levothyroxine 175 MCG TAB PO SCH (05:31)
[2019-05-17 05:45] LABS: ALT (SGPT) 17 U/L (8-55); AST (SGOT) 18 U/L (5-34); Albumin 3.4 g/dL (3.5-5.0); Alkaline Phosphatase 43 U/L (40-150); Anion Gap 12 mmol/L (10-20); BUN (Urea Nitrogen) 6 mg/dL (9.8-20.1); Bilirubin, Total 0.4 mg/dL (0.2-1.2); Calc. Creatinine Clearance 203 mL/min (70-130); Carbon Dioxide 22 mmol/L (22-29); Chloride 108 mmol/L (98-107); Estimated GFR-MDRD Greater than 90; Globulin 2.4 g/dL (2.4-3.5); Glucose 112 mg/dL (70-105); Potassium 3.3 mmol/L (3.5-5.1); Protein, Total 5.8 g/dL (6.0-8.3); Sodium 139 mmol/L (136-145)
[2019-05-17 06:09] LABS: Band 21 % (5-11); Eosinophils 1 % (0-10); Hemoglobin 11.8 g/dL (12.0-16.0); Lymphocytes 25 % (21-51); MDiff Complete? YES; Mean Corpuscular HGB CONC 32.5 g/dL (32.0-36.0); Mean Corpuscular Hemoglobin 31.9 pg (27.0-31.0); Mean Corpuscular Volume 98.2 fL (78.0-98.0); Monocytes 23 % (0-10); Neutrophil 29 % (42-75); Platelet Count 358 thou/uL (130-400); RBC Distribution Width 15.2 % (11.5-14.5); Reactive Lymphocytes 1 % (0-10); Red Blood Cell (RBC) Count 3.71 mill/uL (4.20-5.40); White Blood Cell (WBC) Count 5.7 thou/uL (4.8-10.8)
[2019-05-17] MEDS ORDERED: Potassium Chloride 20 MEQ TAB PO SCH (07:00)
[2019-05-17] MEDS: Apixaban 5 MG TAB PO SCH ×2 (08:21→20:50)
[2019-05-17] MEDS: Acyclovir 400 mg Tablet PO SCH ×2 (08:22→20:50)
[2019-05-17 08:23] LABS: Phosphorus 1.8 mg/dL (2.3-4.7)
[2019-05-17] MEDS: predniSONE 20 MG TAB PO SCH (08:25)
--- NOTE | 2019-05-17 08:54 | PDOC.FM ---
- Subjective Subjective: pt resting comfortably in bed, reports SOB and fluttering when ambulating. denies syncope or chest pain - Objective Vital Signs & Weight: Vital Signs (12 hours) Temp Pulse Resp BP BP Pulse Ox 05/17/19 07:46 98.5 F 135 H 26 H 121/69 05/17/19 06:40 107 H 20 05/17/19 03:15 97.9 F 114 H 20 112/59 L 95 05/17/19 01:30 63 20 97 05/17/19 00:00 71 20 100/59 L 95 05/16/19 21:48 65 22 H 98 Weight Admit Weight 129.274 kg Weight 130.68 kg I&O: 05/16/19 05/17/19 05/18/19 06:59 06:59 06:59 Intake Total 5177 Output Total 2650 Balance 2527 Result Diagrams: 05/17/19 05:03 05/17/19 05:03 Phys Exam - Physical Examination Constitutional: NAD HEENT: moist MMs Neck: no JVD rales present, good air movement Cardiovascular: no significant murmur, irregular Gastrointestinal: non-tender, no distention Musculoskeletal: no edema, pulses present Neurological: normal sensation Psychiatric: normal affect Skin: no rash Dx/Plan (1) Atrial fibrillation with RVR Code(s): I48.91 - UNSPECIFIED ATRIAL FIBRILLATION Status: Acute (2) PNA (pneumonia) Code(s): J18.9 - PNEUMONIA, UNSPECIFIED ORGANISM Status: Acute Qualifiers: Pneumonia type: due to unspecified organism Laterality: left Lung location: lower lobe of lung Qualified Code(s): J18.1 - Lobar pneumonia, unspecified organism (3) History of pulmonary embolus (PE) Code(s): Z86.711 - PERSONAL HISTORY OF PULMONARY EMBOLISM Status: Chronic (4) Hypothyroidism Code(s): E03.9 - HYPOTHYROIDISM, UNSPECIFIED Status: Chronic Qualifiers: Hypothyroidism type: postoperative Qualified Code(s): E89.0 - Postprocedural hypothyroidism (5) Multiple myeloma Code(s): C90.00 - MULTIPLE MYELOMA NOT HAVING ACHIEVED REMISSION Status: Chronic Qualifiers: Multiple myeloma remission status: not in remission Qualified Code(s): C90.00 - Multiple myeloma not having achieved remission - Plan Plan: Sepsis secondary to CAP - increased O2 requirement, tachycardia, CTA revealing pna in the setting of multiple myeloma undergoing chemo - continue Vanc and Zosyn for immune suppressed state and health care visits - Blood cx NGTD, LA downtrending, procal neg - currently hemodynamically stable, continue to monitor - scheduled duoneb, PRN O2 to maintain sats>92%, add prednisone afib with RVR - amio [id number], amio 200mg started when arrhythmia continued - pt pna and volume depletion adequately treated at this point, consider other causes - TSH, mg, trop wnl, phos low. Echo pending - continue eliquis. - cardiology consulted, appreciate recs Multiple myeloma - currently undergoing tx, broad scope abx as above - heme/onc, Dr. Chinchilla consulted, appreciate recs Hypothyroid - home synthroid - tsh wnl code: full ppx: eliquis abx: vanc/zosyn dispo: eval for other causes of arrhythmia Addendum - Attending - Attending Attestation Date/Time: 05/17/19 5846 I personally evaluated the patient and discussed the management with Dr. Arteaga. I agree with the History, Examination, Assessment and Plan documented above with any addition or exceptions noted below. We marlon move to IMCU for further eval and treatment.
[2019-05-17] MEDS ORDERED: Magnesium 2 GM/50 ML 2 GM in Premix Bag 1 BAG IVPB SCH (10:30)
[2019-05-17] MEDS ORDERED: Amiodarone 450 MG in Dextrose 5% in Water 250 ML IVPB SCH (10:30)
[2019-05-17] MEDS ORDERED: Magnesium 2 GM/NS 0.9% 100 ML 2 GM in Premix Bag 1 BAG IVPB SCH (10:30)
--- NOTE | 2019-05-17 10:51 | CON ---
DATE OF CONSULTATION: 05/17/2019 REASON FOR CONSULTATION: Atrial fibrillation with a rapid rate. PRIMARY ENGINE TURNER: Dr. Clem Alvarenga. HISTORY OF PRESENT ILLNESS: Ms. Quesada is a very pleasant 59-year-old woman. The patient has a history of multiple myeloma. She underwent stem cell transplantation in the fall of 2017. She has undergone chemotherapy, did have some difficulty with chemotherapeutic agent earlier in the year as it is outlined in the chart. On this occasion, the patient was brought to the hospital with progressive trouble breathing. She was found to be in atrial fibrillation with a rapid rate as well as having pneumonia. She was initially given amiodarone, converted to sinus rhythm, but now is back in atrial fibrillation. The patient had a low-grade temperature. The patient currently feels moderately short of breath and feels somewhat tight all over her body like when she retains fluid, she tells me. The patient has received inhaled bronchodilators. HOME MEDICATIONS: 1. Apixaban 5 mg twice a day for history of recurrent pulmonary emboli. 2. Losartan 100 mg a day. 3. Zovirax. 4. Benadryl if needed. 5. Zofran if needed. PAST MEDICAL HISTORY: 1. History of multiple myeloma. 2. History of pulmonary emboli. 3. History of bone marrow transplantation. 4. History of splenectomy. 5. History of cholecystectomy. FAMILY HISTORY: Father with lung cancer. Mother has colon cancer. SOCIAL HISTORY: Lives in [place]. Four children, one . REVIEW OF SYSTEMS: CONSTITUTIONAL: Positive for some fatigue. VISION: No changes. HEARING: No changes. PULMONARY: Positive for shortness of breath. CARDIAC: Chest tightness intermittently, especially when the heart rate is fast. GASTROINTESTINAL: No nausea or vomiting. She did report diarrhea. SKIN: No rashes. PHYSICAL EXAMINATION: GENERAL: This is a pleasant 59-year-old woman. She is 6 feet tall, 288 pounds with a BMI of 39, which is morbid obesity. VITAL SIGNS: Her blood pressure 121/69, pulse is 120, irregularly irregular with atrial fibrillation. HEENT: Eyes, sclerae nonicteric. Mouth, mucous membranes are moist. LUNGS: Diffuse expiratory wheezing. CARDIAC: Tachycardic and irregular. No murmur, rub, or gallop. ABDOMEN: Soft and nontender. EXTREMITIES: No clubbing or cyanosis. There is moderate diffuse peripheral edema. PERTINENT LABORATORY DATA: Potassium is 3.3, magnesium is 2.0, and hemoglobin is 11.8. The patient's family tells me that a chest x-ray was done here, but I do not see it in the records. They also told me that a CT scan was done, which I am not seeing in the records either. EKG does reveal atrial fibrillation with a rapid rate. The patient tells me that she had echocardiogram and nuclear medicine stress testing last fall, which were normal. ASSESSMENT: 1. Pneumonia by report, although I do not see the imaging documented in the chart. 2. Atrial fibrillation with a rapid rate. 3. History of multiple myeloma. 4. Appears volume overloaded. PLAN: 1. Agree with a dose of intravenous diuretic. 2. Recommend Pulmonary consultation. 3. We will go back to intravenous amiodarone. 4. We will follow with you. Job ID: [id number]
--- NOTE | 2019-05-17 11:37 | CON ---
DATE OF CONSULTATION: HISTORY OF PRESENT ILLNESS: Francie Quesada is a 59-year-old obese female, who has been in the hospital since 05/15/2019 when she presented with shortness of breath, coughing, postnasal drip symptoms, but no fever, no chills, and no sputum production. She was found to be in atrial fibrillation and a CAT scan of the chest revealed a left lower lobe infiltrate and I reviewed a chest x-ray taken today. There is no obvious infiltrate. She has never smoked. No alcohol abuse. She no prior history of pneumonia or TB, or asthma. She was seen in the [facility] and was admitted after she failed outpatient treatment. PAST MEDICAL HISTORY: Pertinent for multiple myeloma, status post stem cell transfer 2017, status post splenectomy, history of thyroid surgery, history of cholecystectomy, and history of some kind of a cyst in the pancreas removed. MEDICATIONS: Her chronic medications include; 1. Acyclovir 400 two a day. 2. Eliquis 5 two a day. 3. Levoxyl, Synthroid 175 a day. 4. Losartan 100 a day. 5. Pomalyst 2 mg a day. 6. Additionally, she was found to have recurrent pulmonary emboli once following a surgery in 2007 and the other one in 2017, and has been since then on lifelong Eliquis. SOCIAL HISTORY: She is an plasterer rough. No alcohol. No tobacco. No drug abuse. ALLERGIES: APPARENTLY LATEX. SHE IS NOW STARTED ON DUONEB, ZOSYN, VANCOMYCIN, AND PREDNISONE. PHYSICAL EXAMINATION: GENERAL: She appears to be in no acute distress. VITAL SIGNS: Respiratory rate 20, temperature 98, pulse 78, atrial fibrillation, and blood pressure 121/69. CHEST: Diffuse wheezing. CARDIAC: Normal S1, S2. No gallops. ABDOMEN: Obese. EXTREMITIES: No edema. LABORATORY DATA: White count 5000, H 36, and platelet count 358. Lytes are normal. Glucose 112. Thyroid function is normal. IMPRESSION: Asthmatic bronchitis, new onset. Left retrocardiac density pneumonia, atrial fibrillation, multiple myeloma, asthmatics duration probably aggravated by amiodarone , morbid obesity, multiple myeloma, history of pulmonary emboli, on lifelong anticoagulation. PLAN: I would DC Zosyn at this stage and continue neb treatments and steroids, I have added Dulera. We will follow. This is a consultation note, 70 minutes, 50% direct patient care. Job ID: [id number]
--- NOTE | 2019-05-17 12:35 | RAD ---
PORTABLE CHEST: 05/17/19 HISTORY: Shortness of breath. COMPARISON: 03/01/19. Cardiomegaly. No evidence of vascular congestion or edema. No focal infiltrate or consolidation. Smal l effusions cannot be excluded. No interval change. IMPRESSION: No acute findings. POS: [facility]
[2019-05-17] MEDS: Loratadine 10 MG TAB PO PRN (12:49)
--- NOTE | 2019-05-17 13:29 | CON ---
DATE OF CONSULTATION: REASON FOR CONSULT: Multiple myeloma. HISTORY OF PRESENT ILLNESS: Ms. Quesada is a pleasant 59-year-old female, who has IgG kappa multiple myeloma. She underwent a stem cell transplant in August 2018. Unfortunately, had relapsed disease and is currently on Pomalyst, Darzalex, and dexamethasone. She also has a history of bilateral pulmonary emboli and takes Eliquis. She began to have upper respiratory symptoms, shortness of breath and fever and presented to the hospital on May 15. CT scan showed a left lower lobe infiltrate. She also was found to be in atrial fibrillation with RVR. She was started on antibiotics. Her atrial fibrillation was treated with amiodarone. She takes oral Pomalyst and completes her cycle today. She will be off for at least one week. She is due for her Darzalex tomorrow. PAST MEDICAL HISTORY: 1. Multiple myeloma status post stem cell transplant. 2. Hypertension. 3. Hyperlipidemia. 4. Diabetes mellitus 2. 5. Pulmonary emboli in 2007 and 2016. 6. Thyroidectomy. 7. Splenectomy. 8. Unilateral adrenalectomy. 9. Pancreatic cyst removal. 10. Stem cell transplant. ALLERGIES: TO LATEX. HOME MEDICATIONS: 1. Acyclovir 800 mg daily. 2. Eliquis 5 mg b.i.d. 3. Levothyroxine 175 mcg daily. 4. Losartan 100 mg daily. 5. Pomalyst 2 mg daily for three or four weeks. 6. Tylenol p.r.n. FAMILY HISTORY: Mother had colon cancer. Father had lung cancer. SOCIAL HISTORY: has 4 children. Lives with her spouse. No alcohol, tobacco, or illicit drug use. REVIEW OF SYSTEMS: A 10-point review of systems is negative except for noted in HPI. PHYSICAL EXAMINATION: VITAL SIGNS: Temperature is 98.5, pulse is 76, respiratory rate is 26, blood pressure is 110/53, and she is 94% on 4 L nasal cannula. GENERAL: This is a well-developed, well-nourished female, in no acute distress. HEENT: Normocephalic and atraumatic. Pupils are equal and reactive to light. NECK: Supple. CV: Regular rate and rhythm. LUNGS: She has crackles in her left posterior base. ABDOMEN: Soft and nontender. Bowel sounds are positive. EXTREMITIES: No clubbing, cyanosis, or edema. SKIN: No rash. HEMATOLOGIC: No petechiae or purpura. NEUROLOGIC: Nonfocal. PSYCH: She is alert, oriented, and appropriate. PERTINENT LABS AND X-RAYS: Current WBCs are 5.7, hemoglobin 11.8, hematocrit 36.5, platelet count 357,000, 29% neutrophils, 21% bands, and 25% lymphocytes. Sodium is 139, potassium is 3.3, chloride is 108, CO2 is 22, BUN is 6, creatinine is 0.63, calcium is 8, bilirubin is 0.4, AST is 18, ALT is 17, and alkaline phosphatase is 43. BNP is 213 and troponin is negative. Serum total protein 5.8, albumin 3.4, and globulin 2.4. ASSESSMENT: 1. Multiple myeloma status post stem cell transplant. 2. Pneumonia. 3. Atrial fibrillation with rapid ventricular response. 4. History of pulmonary embolism. DISCUSSION: The patient's Eliquis has been continued. She has been started on broad-spectrum antibiotics. Her atrial fibrillation is controlled with medication. She will hold her Pomalyst at least for a one week. Her Darzalex will be postponed for two weeks and we will follow up with her in the clinic prior to resuming any treatment. Thank you for the consult. Job ID: [id number]
[2019-05-17] MEDS: PHOS-NAK 1 PKT PACK PO SCH ×2 (15:49→20:52)
[2019-05-17 16:34] LABS: Vancomycin, Trough 8.1 ug/mL
[2019-05-17] MEDS: Dronedarone HCl 400 MG TAB PO SCH (18:31)
[2019-05-17] MEDS: Mometasone/Formoterol 120 PUFF INHALER INH SCH (19:00)
[2019-05-17] MEDS: Doxycycline 100 MG CAP PO SCH (20:50)
[2019-05-18] MEDS: Acetaminophen 325 MG TAB PO PRN ×2 (04:29→13:40)
[2019-05-18] MEDS: Benzonatate 100 MG CAP PO PRN ×2 (04:48→13:40)
[2019-05-18] MEDS: Levothyroxine 175 MCG TAB PO SCH (05:47)
[2019-05-18] MEDS: Mometasone/Formoterol 120 PUFF INHALER INH SCH ×2 (06:27→19:57)
--- NOTE | 2019-05-18 08:16 | PDOC.FM ---
- Subjective Subjective: pt resting comfortably in bed, echo being performed. She reports breathing has improved. denies fever/chills - Objective Vital Signs & Weight: Vital Signs (12 hours) Temp Pulse Resp BP Pulse Ox 05/18/19 06:33 97 05/18/19 06:29 70 16 97 05/18/19 06:27 70 16 97 05/18/19 05:45 99.4 F 05/18/19 03:34 99.5 F 66 20 104/56 L 96 05/18/19 02:41 76 16 05/18/19 00:00 97.9 F 78 22 H 112/60 94 L 05/17/19 22:42 80 16 Weight Admit Weight 129.274 kg Weight 130.68 kg I&O: 05/17/19 05/18/19 05/19/19 06:59 06:59 06:59 Intake Total 5177 2345 Output Total 2650 1500 Balance 2527 845 Result Diagrams: 05/18/19 09:02 05/18/19 09:02 Phys Exam - Physical Examination Constitutional: NAD HEENT: moist MMs Neck: no JVD Respiratory: wheezing present Cardiovascular: RRR, no significant murmur Gastrointestinal: soft, non-tender, no distention Musculoskeletal: no edema, pulses present Neurological: moves all 4 limbs Lymphatic: no nodes Psychiatric: normal affect Skin: no rash Dx/Plan (1) Atrial fibrillation with RVR Code(s): I48.91 - UNSPECIFIED ATRIAL FIBRILLATION Status: Acute (2) PNA (pneumonia) Code(s): J18.9 - PNEUMONIA, UNSPECIFIED ORGANISM Status: Acute Qualifiers: Pneumonia type: due to unspecified organism Laterality: left Lung location: lower lobe of lung Qualified Code(s): J18.1 - Lobar pneumonia, unspecified organism (3) History of pulmonary embolus (PE) Code(s): Z86.711 - PERSONAL HISTORY OF PULMONARY EMBOLISM Status: Chronic (4) Hypothyroidism Code(s): E03.9 - HYPOTHYROIDISM, UNSPECIFIED Status: Chronic Qualifiers: Hypothyroidism type: postoperative Qualified Code(s): E89.0 - Postprocedural hypothyroidism (5) Multiple myeloma Code(s): C90.00 - MULTIPLE MYELOMA NOT HAVING ACHIEVED REMISSION Status: Chronic Qualifiers: Multiple myeloma remission status: not in remission Qualified Code(s): C90.00 - Multiple myeloma not having achieved remission - Plan Plan: Acute hypoxic respiratory failure - increased O2 requirement, tachycardia, CTA reading pna in the setting of multiple myeloma undergoing chemo - pulm DCd Vanc and Zosyn, start doxycycline - Blood cx NGTD, LA downtrending, procal neg - currently hemodynamically stable, continue to monitor - scheduled duoneb, PRN O2 to maintain sats>92%, add prednisone - consider HF vs Cardiomyopathy as possible cause afib with RVR - POA, amio drip started, persisted when DCd - pt pna and volume depletion adequately treated at this point, consider other causes - TSH, mg, trop wnl, phos low. Echo pending - continue eliquis. - cardiology consulted, appreciate recs - Multaq started 05/17- NSR since Multiple myeloma - currently undergoing tx - heme/onc, Dr. Chinchilla consulted, appreciate recs Hypothyroid - home synthroid - tsh wnl code: full ppx: eliquis abx: doxy dispo: treat for bronchitis, echo pending. Addendum - Attending - Attending Attestation Date/Time: 05/18/19 7454 I personally evaluated the patient and discussed the management with Dr. Arteaga. I agree with the History, Examination, Assessment and Plan documented above with any addition or exceptions noted below. Otilia improved nyesterday afternoon resutling in not transfer to [facility] after consultation with [facility]. He bronchitis is slowly imprving adn her pulmonary edema is better on exam today. However she still has 4L/min NC oxygen requirement. With continued steroids, nebs, antibx, and diuresis I expect her to improve.
--- NOTE | 2019-05-18 08:46 | PRG ---
DATE OF SERVICE: 05/18/2019 SUBJECTIVE: This morning, the patient is awake, alert, and responsive. OBJECTIVE: VITAL SIGNS: Temperature is 99, pulse 70, respirations 16, and saturations are 96% on 4 L. CHEST: Decreased breath sounds. Minimal wheezing. CARDIAC: Normal S1 and S2. No gallops. ABDOMEN: No masses. LABORATORY DATA: Phosphorus a little bit low. Magnesium normal. BNP is slightly elevated. IMPRESSION: 1. Questionable left-sided pneumonia. 2. Supraventricular tachycardia, on Multaq. 3. Asthmatic bronchitis. PLAN: Continue neb treatments, supportive care, p.o. antibiotics. Refill vancomycin. All cultures are negative. We will follow. Job ID: [id number]
[2019-05-18] MEDS ORDERED: Amiodarone 200 MG TAB PO SCH (09:00)
--- NOTE | 2019-05-18 09:21 | PRG ---
DATE OF SERVICE: 05/18/2019 SUBJECTIVE: Ms. Quesada is feeling better today. She is wheezing less. She went back into atrial fibrillation last night, but she is back in sinus today. OBJECTIVE: VITAL SIGNS: Blood pressure 114/54; pulse is now 70, it is regular , it is sinus. LUNGS: Some expiratory wheezing, but it is better than yesterday. CARDIAC: Normal S1. Normal S2. ABDOMEN: Soft and nontender. EXTREMITIES: Mild edema. PERTINENT LABORATORY DATA: Potassium low yesterday. BNP was 213 yesterday. ASSESSMENT: 1. Pneumonia. 2. Paroxysmal atrial fibrillation. 3. Diastolic heart failure. 4. Hypokalemia. PLAN: 1. She is going to receive intravenous diuretic today. 2. Potassium. 3. Check basic metabolic tomorrow. 4. She is on Multaq now instead of amiodarone. If necessary, could add digoxin. Job ID: [id number] MTDD
[2019-05-18 09:39] LABS: ALT (SGPT) 23 U/L (8-55); AST (SGOT) 16 U/L (5-34); Albumin 3.5 g/dL (3.5-5.0); Alkaline Phosphatase 42 U/L (40-150); Anion Gap 8 mmol/L (10-20); BUN (Urea Nitrogen) 8 mg/dL (9.8-20.1); Bilirubin, Total 0.6 mg/dL (0.2-1.2); Calc. Creatinine Clearance 200 mL/min (70-130); Calcium 8.2 mg/dL (7.8-10.44); Carbon Dioxide 27 mmol/L (22-29); Chloride 108 mmol/L (98-107); Estimated GFR-MDRD Greater than 90; Globulin 2.3 g/dL (2.4-3.5); Glucose 102 mg/dL (70-105); Potassium 3.4 mmol/L (3.5-5.1); Protein, Total 5.8 g/dL (6.0-8.3); Sodium 140 mmol/L (136-145)
[2019-05-18] MEDS: Furosemide 20 MG/2 ML VIAL SLOW IVP SCH (09:57)
[2019-05-18] MEDS: predniSONE 20 MG TAB PO SCH (09:57)
[2019-05-18] MEDS: Apixaban 5 MG TAB PO SCH ×2 (09:57→21:13)
[2019-05-18] MEDS: Dronedarone HCl 400 MG TAB PO SCH ×2 (09:58→17:00)
[2019-05-18] MEDS: Doxycycline 100 MG CAP PO SCH ×2 (09:58→21:13)
[2019-05-18] MEDS: Acyclovir 400 mg Tablet PO SCH ×2 (09:58→21:15)
[2019-05-18] MEDS: PHOS-NAK 1 PKT PACK PO SCH ×2 (09:58→17:01)
[2019-05-18 10:13] LABS: Band 11 % (5-11); Eosinophils 7 % (0-10); Hemoglobin 11.1 g/dL (12.0-16.0); Lymphocytes 35 % (21-51); MDiff Complete? YES; Mean Corpuscular HGB CONC 31.8 g/dL (32.0-36.0); Mean Corpuscular Hemoglobin 31.2 pg (27.0-31.0); Mean Corpuscular Volume 98.1 fL (78.0-98.0); Mean Platelet Volume 7.1 fL (7.4-10.4); Monocytes 13 % (0-10); Neutrophil 32 % (42-75); Platelet Count 422 thou/uL (130-400); Platelet Morphology Comment Appears Increased; Polychromasia SLIGHT = 2-3 cells (100X) (0-2/hpf); RBC Distribution Width 15.5 % (11.5-14.5); Reactive Lymphocytes 2 % (0-10); Red Blood Cell (RBC) Count 3.55 mill/uL (4.20-5.40); White Blood Cell (WBC) Count 5.5 thou/uL (4.8-10.8)
[2019-05-18] MEDS ORDERED: Potassium Chloride 20 MEQ TAB PO SCH ×2 (13:00)
[2019-05-18 13:16] VITALS: BMI 39.0
[2019-05-18] MEDS: Loratadine 10 MG TAB PO PRN (13:40)
[2019-05-18 18:11] LABS: Vancomycin, Trough 6.2 ug/mL
[2019-05-19 05:03] LABS: ALT (SGPT) 26 U/L (8-55); AST (SGOT) 15 U/L (5-34); Albumin 3.5 g/dL (3.5-5.0); Alkaline Phosphatase 47 U/L (40-150); Anion Gap 9 mmol/L (10-20); BUN (Urea Nitrogen) 9 mg/dL (9.8-20.1); Bilirubin, Total 0.5 mg/dL (0.2-1.2); Calc. Creatinine Clearance 217 mL/min (70-130); Calcium 8.1 mg/dL (7.8-10.44); Carbon Dioxide 26 mmol/L (22-29); Chloride 106 mmol/L (98-107); Estimated GFR-MDRD Greater than 90; Globulin 2.3 g/dL (2.4-3.5); Glucose 108 mg/dL (70-105); Potassium 3.8 mmol/L (3.5-5.1); Protein, Total 5.8 g/dL (6.0-8.3); Sodium 137 mmol/L (136-145)
[2019-05-19 05:08] LABS: Band 10 % (5-11); Hemoglobin 11.2 g/dL (12.0-16.0); Hypochromia SLIGHT = 6-15 cells (100X) (0-5/hpf); Lymphocytes 34 % (21-51); MDiff Complete? YES; Mean Corpuscular HGB CONC 32.1 g/dL (32.0-36.0); Mean Corpuscular Hemoglobin 31.6 pg (27.0-31.0); Mean Corpuscular Volume 98.4 fL (78.0-98.0); Mean Platelet Volume 6.9 fL (7.4-10.4); Monocytes 22 % (0-10); Neutrophil 34 % (42-75); Platelet Count 447 thou/uL (130-400); Platelet Morphology Comment Appears Increased; RBC Distribution Width 15.3 % (11.5-14.5); Red Blood Cell (RBC) Count 3.54 mill/uL (4.20-5.40); White Blood Cell (WBC) Count 4.9 thou/uL (4.8-10.8)
[2019-05-19] MEDS: Levothyroxine 175 MCG TAB PO SCH (05:47)
[2019-05-19] MEDS: Benzonatate 100 MG CAP PO PRN ×2 (05:50→14:33)
[2019-05-19] MEDS: Mometasone/Formoterol 120 PUFF INHALER INH SCH (06:58)
[2019-05-19] MEDS ORDERED: Potassium Chloride 20 MEQ TAB PO SCH ×2 (08:45→10:45)
--- NOTE | 2019-05-19 08:51 | PRG ---
DATE OF SERVICE: 05/19/2019 SUBJECTIVE: Francie Quesada, this morning, she is better, she has less cough, and less shortness of breath. OBJECTIVE: VITAL SIGNS: Pulse 59, respiratory rate 16, sats are 96% on 4 L, and blood pressure 120/80. I's and O's were even yesterday. CHEST: Bilateral crackles, minimal wheezing. CARDIAC: Normal S1, S2. No gallops. IMPRESSION: 1. Supraventricular tachycardia. 2. Asthmatic bronchitis. PLAN: The patient is not getting enough rest. I am going to go ahead and change the neb treatments to q.4 hours while awake. Otherwise, continue prednisone and Dulera. Hopefully, she will be discharged home soon. Job ID: [id number]
--- NOTE | 2019-05-19 08:51 | PDOC.FM ---
- Subjective Subjective: pt resting comfortably in bed, ambulating to bathroom w/o O2 or dyspnea. denies chest pain/fever/chills - Objective Vital Signs & Weight: Vital Signs (12 hours) Temp Pulse Resp BP Pulse Ox 05/19/19 07:02 96 05/19/19 07:00 96 05/19/19 06:58 59 L 16 98 05/19/19 03:42 97.8 F 58 L 20 110/55 L 95 05/18/19 23:57 95 05/18/19 23:21 98.4 F 62 20 107/60 96 Weight Admit Weight 129.274 kg Weight 130.68 kg I&O: 05/18/19 05/19/19 05/20/19 06:59 06:59 06:59 Intake Total 2345 1690 Output Total 1500 1200 Balance 845 490 Result Diagrams: 05/19/19 04:06 05/19/19 04:06 Phys Exam - Physical Examination Constitutional: NAD HEENT: moist MMs Neck: no JVD crackles in LLF Cardiovascular: RRR, no significant murmur Gastrointestinal: no distention Musculoskeletal: no edema, pulses present Neurological: moves all 4 limbs Psychiatric: normal affect Skin: no rash Dx/Plan (1) Atrial fibrillation with RVR Code(s): I48.91 - UNSPECIFIED ATRIAL FIBRILLATION Status: Acute (2) PNA (pneumonia) Code(s): J18.9 - PNEUMONIA, UNSPECIFIED ORGANISM Status: Acute Qualifiers: Pneumonia type: due to unspecified organism Laterality: left Lung location: lower lobe of lung Qualified Code(s): J18.1 - Lobar pneumonia, unspecified organism (3) History of pulmonary embolus (PE) Code(s): Z86.711 - PERSONAL HISTORY OF PULMONARY EMBOLISM Status: Chronic (4) Hypothyroidism Code(s): E03.9 - HYPOTHYROIDISM, UNSPECIFIED Status: Chronic Qualifiers: Hypothyroidism type: postoperative Qualified Code(s): E89.0 - Postprocedural hypothyroidism (5) Multiple myeloma Code(s): C90.00 - MULTIPLE MYELOMA NOT HAVING ACHIEVED REMISSION Status: Chronic Qualifiers: Multiple myeloma remission status: not in remission Qualified Code(s): C90.00 - Multiple myeloma not having achieved remission - Plan Plan: Acute hypoxic respiratory failure - increased O2 requirement, tachycardia, CTA reading pna in the setting of multiple myeloma undergoing chemo - pulm DCd Vanc and Zosyn, start doxycycline - Blood cx NGTD, LA downtrending, procal neg - currently hemodynamically stable, continue to monitor - scheduled duoneb, PRN O2 to maintain sats>92%, prednisone - most likely 2/2 bronchitis vs fluid overload afib with RVR - POA, amio drip started, persisted when DCd - pt pna and volume depletion adequately treated at this point, consider other causes - TSH, mg, trop wnl, phos low. Echo reveals normal EF - continue eliquis. - cardiology consulted, appreciate recs - Multaq started 05/17- NSR since Multiple myeloma - currently undergoing tx - heme/onc, Dr. Chinchilla consulted, appreciate recs Hypothyroid - home synthroid - tsh wnl code: full ppx: eliquis abx: doxy dispo: supportive care for bronchitis, wean O2 today Addendum - Attending - Attending Attestation Date/Time: 05/19/19 4814 I personally evaluated the patient and discussed the management with Dr. Arteaga. I agree with the History, Examination, Assessment and Plan documented above with any addition or exceptions noted below.
[2019-05-19] MEDS: Doxycycline 100 MG CAP PO SCH (08:54)
[2019-05-19] MEDS: predniSONE 20 MG TAB PO SCH (08:57)
[2019-05-19] MEDS: Dronedarone HCl 400 MG TAB PO SCH ×2 (08:58→17:00)
[2019-05-19] MEDS: Furosemide 20 MG/2 ML VIAL SLOW IVP SCH (08:58)
[2019-05-19] MEDS: Apixaban 5 MG TAB PO SCH (08:58)
[2019-05-19] MEDS ORDERED: Acyclovir 200 mg Capsule PO SCH (09:00)
--- NOTE | 2019-05-19 09:34 | PRG ---
DATE OF SERVICE: 05/19/2019 SUBJECTIVE: Ms. Quesada is feeling much better. No complaints. OBJECTIVE: VITAL SIGNS: Her blood pressure is 110/55 and pulse is 60, it is sinus on the monitor. LUNGS: There are a few basilar rales. CARDIAC: Normal S1. Normal S2. ABDOMEN: Soft and nontender. EXTREMITIES: Reduced edema. LABORATORY DATA: Potassium is 3.8. Echocardiogram showed normal left ventricular function. ASSESSMENT: 1. Paroxysmal atrial fibrillation, now in sinus rhythm. 2. Pneumonia. 3. Hypokalemia, improved. 4. Diastolic congestive heart failure. BNP 213. PLAN: 1. She is on daily furosemide. 2. Add potassium. 3. Multaq. 4. She goes home to follow up with Dr. Clem Alvarenga. 5. She is on Eliquis. 6. We will sign off. Please reconsult if needed. Job ID: [id number]
--- NOTE | 2019-05-19 15:16 | PQF ---
CLINICAL DOCUMENTATION IMPROVEMENT CLARIFICATION FORM: ICD-10 Updated PLEASE DO AN ADDENDUM TO THE PROGRESS NOTE WITH ANY DOCUMENTATION UPDATES OR ADDITIONS AND CARRY THROUGH TO DC SUMMARY. THANK YOU. DATE: 05/19/19 ATTN : DR. PORRAS Please exercise your independent, professional judgment in responding to the clarification form. Clinical indicators are provided on the bottom of this form for your review Please check appropriate box(s): HEART FAILURE: . ACUITY [ ] Acute [ ] Acute on Chronic [ ] Chronic [ ] Other diagnosis [ x] Unable to determine In addition, please specify: Present on Admission (POA): [x ] Yes [ ] No [ ] Unable to determine For continuity of documentation, please document condition throughout progress notes and discharge summary. Thank You. CLINICAL INDICATORS - SIGNS / SYMPTOMS / LABS CONSULTATION NOTE (JAVIER): "DIASTOLIC CONGESTIVE HEART FAILURE" BNP 213 RISKS: HYPERTENSION AFIB TREATMENT: IV LASIX 05/18-PRESENT TELEMETRY MONITORING (This form is maintained as a part of the permanent medical record) 2014 [employer]. All Rights Reserved [email or web address] Office: [phone] [email or web address]
[2019-05-19 17:03] VITALS: BP 122/64
[2019-05-19 17:04] VITALS: TEMP 97.9
[2019-05-20] MEDS ORDERED: Potassium Chloride 20 MEQ TAB PO SCH (08:00)
== END 2019-05-19 18:30 | disposition home or self-care (01) | DRG 871 ==
LOC: ERS 19:01 → ERHOLD 23:22 → 2NO 05-16 05:46
PROVIDERS: ADMIT Family Medicine; ATTEND Family Medicine
DX: A41.9 Sepsis, unspecified organism (principal); J18.1 Lobar pneumonia, unspecified organism; J96.01 Acute respiratory failure with hypoxia; I50.30 Unspecified diastolic (congestive) heart failure; C90.00 Multiple myeloma not having achieved remission; I47.1 Supraventricular tachycardia; Z94.81 Bone marrow transplant status; I48.0 Paroxysmal atrial fibrillation; E87.6 Hypokalemia; I11.0 Hypertensive heart disease with heart failure; Z79.01 Long term (current) use of anticoagulants; J45.909 Unspecified asthma, uncomplicated; Z86.711 Personal history of pulmonary embolism; E78.5 Hyperlipidemia, unspecified; E11.9 Type 2 diabetes mellitus without complications; Z90.81 Acquired absence of spleen; E66.01 Morbid (severe) obesity due to excess calories; E89.0 Postprocedural hypothyroidism; E86.9 Volume depletion, unspecified; Z91.040 Latex allergy status; Z90.49 Acquired absence of other specified parts of digestive tract
CPT/HCPCS: 36415; 71045; 80048; 80053; 80202; 83605; 83735; 83880; 84100; 84145; 84443; 84484; 85025; 93306; 94640; 96361; 96365; 96366; 96367; 96368; J0282; J1940; J2543; J3370; J3475; J3490; J7050; J7070; J7512; J7620

== ENCOUNTER 2023-09-15 10:57 | Outpatient (CLI) | payer OTHER ==
[2023-09-15 13:41] LABS: Hematocrit 46.3 % (34.9-44.5); Hemoglobin 15.5 g/dL (12.0-15.5); Mean Corpuscular HGB CONC 33.5 g/dL (32.0-36.0); Mean Corpuscular Hemoglobin 32.1 pg (27.0-33.0); Mean Corpuscular Volume 95.9 fl (81.6-98.3); Mean Platelet Volume 10.5 fl (7.4-10.4); Platelet Count 365 10x3/uL (150-450); RBC Distribution Width 15.7 % (11.5-14.5); Red Blood Cell (RBC) Count 4.83 10x6/uL (3.90-5.03); White Blood Cell (WBC) Count 9.1 10x3/uL (3.5-10.5)
[2023-09-15 13:58] LABS: Anion Gap 20 mmol/L (10-20); BUN (Urea Nitrogen) 11 mg/dL (9.8-20.1); Calc. Creatinine Clearance 0 mL/min (70-130); Calcium 9.2 mg/dL (7.8-10.44); Carbon Dioxide 21 mmol/L (23-31); Chloride 103 mmol/L (98-107); Estimated GFR 92; Glucose 184 mg/dL (80-115); Potassium 4.1 mmol/L (3.5-5.1); Sodium 140 mmol/L (136-145)
== END 2023-09-15 10:58 | disposition home or self-care (01) ==
LOC: LABBT 10:57
PROVIDERS: ATTEND Orthopaedic Surgery
DX: Z01.818 Encounter for other preprocedural examination (principal); S42.302A Unspecified fracture of shaft of humerus, left arm, initial encounter for closed fracture
CPT/HCPCS: 80048; 85027; 93005; 93010

== ENCOUNTER 2023-09-23 10:48 | Observation (INO) | payer OTHER ==
[2023-09-15 11:42] VITALS: BMI 38.6
[2023-09-23] MEDS ORDERED: Sodium Chloride 0.9% 100 ML ONE (12:23)
[2023-09-23] MEDS ORDERED: CEFAZOLIN 2 GM VIAL ONE (12:23)
[2023-09-23] MEDS ORDERED: fentaNYL 50 mcg/mL 1 mL Vial ONE ×2 (12:30→14:52)
[2023-09-23] MEDS ORDERED: Midazolam HCl 2 mg/2 ml Vial ONE (12:30)
[2023-09-23] MEDS ORDERED: Ropivacaine 0.5% HCl/PF (150 MG/30 ML VIAL) ONE ×2 (12:30→13:06)
[2023-09-23] MEDS ORDERED: PROPOFOL 20 ML ONE (12:52)
[2023-09-23] MEDS ORDERED: Rocuronium Bromide 10 MG/ML (10ML VIAL) ONE ×2 (12:57→13:06)
[2023-09-23] MEDS ORDERED: Dexmedetomidine 200 MCG/2 ML VIAL ONE (12:57)
[2023-09-23] MEDS ORDERED: Ondansetron PF 4 MG/2 ML Vial ONE ×2 (12:59→13:06)
[2023-09-23] MEDS ORDERED: Hydrocortisone Sod Succ/PF 100 mg/2 ml Vial ONE (12:59)
[2023-09-23] MEDS ORDERED: Lidocaine 1% PF 5 ML VIAL ONE ×2 (12:59→13:06)
[2023-09-23] MEDS ORDERED: ePHEDrine Sulfate 50 MG/10 ML VIAL ONE ×2 (13:06→13:33)
[2023-09-23] MEDS ORDERED: PHENYLEPHRINE-NS 100 MCG/ML 10 ML SYRINGE ONE ×2 (13:06→13:20)
[2023-09-23] MEDS ORDERED: diphenhydrAMINE 50 MG/ML VIAL ONE ×2 (13:06→14:52)
[2023-09-23] MEDS ORDERED: PROPOFOL 200 MG/20 ML VIAL ONE (13:06)
[2023-09-23] MEDS ORDERED: Vancomycin 1 GM VIAL ONE (14:28)
[2023-09-23] MEDS ORDERED: SUGAMMADEX SODIUM 200 MG/2 ML VIAL ONE ×2 (14:40→14:46)
[2023-09-23] MEDS ORDERED: Ondansetron PF 4 MG/2 ML Vial IVP PRN (17:37)
[2023-09-23] MEDS ORDERED: Acetaminophen 325 MG TAB PO PRN (17:37)
[2023-09-23] MEDS ORDERED: traMADol HCl 50 MG TAB PO PRN (17:37)
[2023-09-23] MEDS ORDERED: Communication Order-Pharmacy FS SCH (17:37)
[2023-09-23] MEDS ORDERED: Milk Of Magnesia 30 ML UDCUP PO PRN (17:37)
[2023-09-23] MEDS: Flecainide 50 MG TAB PO SCH (20:33)
[2023-09-23] MEDS: Aspirin 81 mg Enteric Coated Tablet PO SCH (20:34)
[2023-09-23] MEDS: CEFAZOLIN 2 GM in Sodium Chloride 0.9% 100 ML IVPB SCH (22:14)
[2023-09-23] MEDS ORDERED: Rosuvastatin 10 MG TAB PO SCH (22:15)
[2023-09-24 04:17] VITALS: BP 105/56; TEMP 98.2
[2023-09-24 05:25] LABS: Hematocrit 36.1 % (36.0-47.0); Hemoglobin 11.7 g/dL (12.0-16.0); Manual Diff?? YES; Mean Corpuscular HGB CONC 32.4 g/dL (32.0-36.0); Mean Corpuscular Hemoglobin 32.8 pg (27.0-31.0); Mean Corpuscular Volume 101.1 fl (78.0-98.0); Platelet Count 418 10x3/uL (130-400); RBC Distribution Width 16.9 % (11.5-14.5); Red Blood Cell (RBC) Count 3.57 mill/uL (4.20-5.40); White Blood Cell (WBC) Count 12.7 10x3/uL (4.8-10.8)
[2023-09-24] MEDS: CEFAZOLIN 2 GM in Sodium Chloride 0.9% 100 ML IVPB SCH (05:27)
[2023-09-24] MEDS ORDERED: Levothyroxine 175 MCG TAB PO SCH (06:00)
[2023-09-24 06:08] LABS: Delete Auto Diff?? YES
[2023-09-24 06:39] LABS: Band 10 % (5-11); CellaVision Operator ID LAB.GE; Large Platelets 2.8 % (0-5); Lymphocytes 21 % (21-51); Monocytes 17 % (0-10); Myelocyte 1 % (0-0); Neutrophil 47 % (42-75); Nucleated RBC (Manual Ct) 2 % (0); Platelet Adequacy Comment Platelets Normal; Polychromasia MODERATE = 3-4 cells HPF (0-2); Reactive Lymphocytes 2 % (0-10); Schistocytes SLIGHT = 2-5 cells HPF (0-1); Total Cell Count 106
[2023-09-24] MEDS: HYDROcodone/Acetaminophen 5/325 mg Tablet PO PRN ×2 (07:25→10:31)
[2023-09-24] MEDS: fentaNYL 50 mcg/mL 1 mL Vial SLOW IVP PRN ×2 (07:33→10:27)
[2023-09-24] MEDS ORDERED: Rosuvastatin 10 MG TAB PO SCH ×2 (09:00→21:00)
[2023-09-24] MEDS ORDERED: POMALIDOMIDE 2 MG PO SCH (09:00)
[2023-09-24] MEDS ORDERED: Apixaban 5 MG TAB PO SCH (09:00)
[2023-09-24] MEDS: Aspirin 81 mg Enteric Coated Tablet PO SCH (09:08)
[2023-09-24] MEDS: Flecainide 50 MG TAB PO SCH (09:08)
== END 2023-09-24 15:59 | disposition home or self-care (01) ==
LOC: BBPSJX 10:48 → SURG B 17:32
PROVIDERS: ADMIT Orthopaedic Surgery; ATTEND Orthopaedic Surgery
PROC: 0PSG04Z Reposition Left Humeral Shaft with Internal Fixation Device, Open Approach (ICD-10-PCS; principal; 2023-09-24)
DX: S42.352K Displaced comminuted fracture of shaft of humerus, left arm, subsequent encounter for fracture with nonunion (principal); Z88.8 Allergy status to other drugs, medicaments and biological substances; Z88.1 Allergy status to other antibiotic agents; Z79.899 Other long term (current) drug therapy; X58.XXXD Exposure to other specified factors, subsequent encounter; Z88.2 Allergy status to sulfonamides; Z91.040 Latex allergy status
CPT/HCPCS: 36415; 85025; C1713; J1200; J1720; J2250; J2405; J2704; J2795; J3010; J3370; J3490